=== PATIENT | female | born 1990 | race Caucasian/White ===

== ENCOUNTER 2018-09-19 10:46 | Emergency (ER) | payer OTHER ==
[~2018-09-19] VITALS: Ht 152.4 cm; Wt 77.1 kg
== END 2018-09-19 11:42 | disposition home or self-care (01) ==
LOC: ER 10:46 → EDBD 10:49 → ER 11:42
DX: S61.531A Puncture wound without foreign body of right wrist, initial encounter (principal); W26.8XXA Contact with other sharp object(s), not elsewhere classified, initial encounter; Y93.89 Activity, other specified; Y92.018 Other place in single-family (private) house as the place of occurrence of the external cause; Y99.8 Other external cause status

== ENCOUNTER 2018-12-16 11:44 | Emergency (ER) | payer OTHER ==
[~2018-12-16] VITALS: Ht 162.6 cm; Wt 77.1 kg
[2018-12-16] MEDS ORDERED: ZITHROMAX TRI-500 MG PO (13:26)
[2018-12-16] MEDS ORDERED: PROMETH-CODEIN 65 ML PO (13:26)
[2018-12-16] MEDS ORDERED: TESSALON PERLE100 M1 PO (13:26)
== END 2018-12-16 13:40 | disposition home or self-care (01) ==
LOC: ER 11:44
DX: R05 Cough (principal)

== ENCOUNTER 2019-01-26 16:49 | Emergency (ER) | payer OTHER ==
[~2019-01-26] VITALS: Ht 162.6 cm; Wt 79.8 kg
[~2019-01-26 16:49] MED LIST: PROMETH-CODEIN 65 ML PO; TESSALON PERLE100 M1 PO; ZITHROMAX TRI-500 MG PO
== END 2019-01-26 21:31 | disposition home or self-care (01) ==
LOC: ER 16:49
DX: S62.637A Displaced fracture of distal phalanx of left little finger, initial encounter for closed fracture (principal); S80.01XA Contusion of right knee, initial encounter; W01.198A Fall on same level from slipping, tripping and stumbling with subsequent striking against other object, initial encounter; Y93.89 Activity, other specified; Y92.015 Private garage of single-family (private) house as the place of occurrence of the external cause; Y99.8 Other external cause status